=== PATIENT | male | born 1960 | race African-American/Black ===

== ENCOUNTER 2021-10-14 12:30 | Inpatient (IN) | payer OTHER ==
[2021-10-14] MEDS ORDERED: ONDANSETRON *ODT* 4 MG TABLET SL PRN (13:38)
[2021-10-14] MEDS ORDERED: MAG HYDROX/AL HYDROX/SIMETH 30 ML UNIT-DOSE CUP PO PRN (13:38)
[2021-10-14] MEDS ORDERED: MENTHOL/PHENOL 1 EACH UD MM PRN (13:38)
[2021-10-14] MEDS ORDERED: MAGNESIUM HYDROX 2400MG/30ML ORAL SUSPENSION 30 ML CUP PO PRN (13:38)
[2021-10-14] MEDS ORDERED: BISMUTH SUBSALICYLATE 262 MG/15 ML BTL PO PRN (13:38)
[2021-10-14] MEDS ORDERED: chlordiazePOXIDE HCL 25 MG CAPSULE PO PRN (13:38)
[2021-10-14] MEDS ORDERED: MAGNESIUM CITRATE 300 ML BOTTLE PO PRN (13:38)
[2021-10-14] MEDS ORDERED: ACETAMINOPHEN 325 MG TABLET (FP) PO PRN ×2 (13:38)
[2021-10-14] MEDS ORDERED: METHOCARBAMOL 500 MG TABLET PO PRN (13:38)
[2021-10-14] MEDS ORDERED: NICOTINE 10 MG CARTRIDGE (INHALER) IH PRN (13:38)
[2021-10-14 14:19] VITALS: BMI 22.3
[2021-10-14 16:06] LABS: ALBUMIN 3.4 g/dl (3.4-5.0); CALCIUM 9.5 mg/dL (8.5-10.1)
[2021-10-14 16:07] LABS: BLOOD UREA NITROGEN 11.3 mg/dL (7-18)
[2021-10-14 16:10] LABS: CREATININE 1.2 mg/dL (0.55-1.3); HEMATOCRIT 47.7 % (35.4-49); HEMOGLOBIN 16.1 GM/dL (11.7-16.9); MCH 31.4 pg (25.7-33.7); MCHC 33.8 g/dl (32.0-35.9); MEAN CELL VOLUME 92.9 fl (80-96); MEAN PLT VOLUME 8.1 fl (7.5-11.1); PLATELET COUNT 269 10^3/uL (134-434); RBC 5.13 M/mm3 (4.00-5.60); RDW 15.7 % (11.9-15.9); WHITE BLOOD COUNT 8.1 K/mm3 (4.0-10.0)
[2021-10-14 16:12] LABS: BILIRUBIN,TOTAL 0.7 mg/dL (0.2-1)
[2021-10-14] MEDS ORDERED: MASKS NR ONE (18:17)
[2021-10-14] MEDS: chlordiazePOXIDE HCL 25 MG CAPSULE PO SCH ×2 (18:19→22:28)
[2021-10-14] MEDS: hydrOXYzine PAMOATE 25 MG CAPSULE (FP) PO SCH ×3 (18:20→22:26)
[2021-10-14] MEDS: IBUPROFEN 100 MG/5 ML UNIT DOSE CUPS PO PRN (22:24)
[2021-10-14] MEDS: MELATONIN 5 MG TABLETS PO SCH (22:26)
[2021-10-14] MEDS: THIAMINE HCL 100 MG TABLET (FP) PO SCH (22:26)
[2021-10-15] MEDS: hydrOXYzine PAMOATE 25 MG CAPSULE (FP) PO SCH ×5 (05:37→22:14)
[2021-10-15] MEDS: chlordiazePOXIDE HCL 25 MG CAPSULE PO SCH ×4 (05:38→23:14)
[2021-10-15] MEDS: PRENATAL VITAMINS W/ FOLIC ACID TABLET (FP) PO SCH (10:36)
[2021-10-15] MEDS: IBUPROFEN 400 MG TABLET (FP) PO PRN (18:25)
[2021-10-15] MEDS: THIAMINE HCL 100 MG TABLET (FP) PO SCH (22:14)
[2021-10-15] MEDS: QUEtiapine FUMARATE 50 MG TABLET PO SCH (22:14)
[2021-10-15] MEDS: DULoxetine HCL 20 MG CAPSULE.DR PO SCH (22:14)
[2021-10-15] MEDS: MELATONIN 5 MG TABLETS PO SCH (22:15)
[2021-10-16] MEDS: chlordiazePOXIDE HCL 25 MG CAPSULE PO SCH ×4 (07:01→22:38)
[2021-10-16] MEDS: hydrOXYzine PAMOATE 25 MG CAPSULE (FP) PO SCH ×5 (07:02→22:37)
[2021-10-16] MEDS: DULoxetine HCL 20 MG CAPSULE.DR PO SCH ×2 (10:43→22:37)
[2021-10-16] MEDS: PRENATAL VITAMINS W/ FOLIC ACID TABLET (FP) PO SCH (10:45)
[2021-10-16] MEDS: IBUPROFEN 100 MG/5 ML UNIT DOSE CUPS PO PRN (18:16)
[2021-10-16] MEDS: THIAMINE HCL 100 MG TABLET (FP) PO SCH (22:37)
[2021-10-16] MEDS: QUEtiapine FUMARATE 50 MG TABLET PO SCH (22:37)
[2021-10-16] MEDS: MELATONIN 5 MG TABLETS PO SCH (22:37)
[2021-10-17] MEDS ORDERED: chlordiazePOXIDE HCL 10 MG CAPSULE PO PRN
[2021-10-17] MEDS: chlordiazePOXIDE HCL 10 MG CAPSULE PO SCH ×4 (05:38→22:42)
[2021-10-17] MEDS: hydrOXYzine PAMOATE 25 MG CAPSULE (FP) PO SCH ×5 (05:39→22:07)
[2021-10-17] MEDS: PRENATAL VITAMINS W/ FOLIC ACID TABLET (FP) PO SCH (10:20)
[2021-10-17] MEDS: DULoxetine HCL 20 MG CAPSULE.DR PO SCH ×2 (15:13→22:06)
[2021-10-17] MEDS: THIAMINE HCL 100 MG TABLET (FP) PO SCH (22:07)
[2021-10-17] MEDS: QUEtiapine FUMARATE 50 MG TABLET PO SCH (22:07)
[2021-10-17] MEDS: MELATONIN 5 MG TABLETS PO SCH (22:07)
[2021-10-17] MEDS: IBUPROFEN 100 MG/5 ML UNIT DOSE CUPS PO PRN (22:07)
[2021-10-18] MEDS: hydrOXYzine PAMOATE 25 MG CAPSULE (FP) PO SCH ×5 (06:17→22:35)
[2021-10-18] MEDS: chlordiazePOXIDE HCL 10 MG CAPSULE PO SCH ×2 (06:18→18:08)
[2021-10-18] MEDS: DULoxetine HCL 20 MG CAPSULE.DR PO SCH ×2 (10:28→22:35)
[2021-10-18] MEDS: PRENATAL VITAMINS W/ FOLIC ACID TABLET (FP) PO SCH (10:28)
[2021-10-18] MEDS: MELATONIN 5 MG TABLETS PO SCH (22:36)
[2021-10-18] MEDS: THIAMINE HCL 100 MG TABLET (FP) PO SCH (22:36)
[2021-10-18] MEDS: QUEtiapine FUMARATE 50 MG TABLET PO SCH (22:37)
[2021-10-18] MEDS: IBUPROFEN 400 MG TABLET (FP) PO PRN (22:38)
[2021-10-19] MEDS ORDERED: chlordiazePOXIDE HCL 10 MG CAPSULE PO ONE (05:00)
[2021-10-19] MEDS: hydrOXYzine PAMOATE 25 MG CAPSULE (FP) PO SCH (05:57)
[2021-10-19 09:25] VITALS: BP 144/81; PULSE 64; TEMP 96.2
== END 2021-10-19 09:47 | disposition home or self-care (01) | DRG 774 ==
LOC: YASAS 12:30 → Y3N 14:31
PROVIDERS: ADMIT Allergy & Immunology; ATTEND Allergy & Immunology
PROC: HZ2ZZZZ Detoxification Services for Substance Abuse Treatment (ICD-10-PCS; principal; 2021-10-14)
DX: F10.230 Alcohol dependence with withdrawal, uncomplicated (principal); F14.10 Cocaine abuse, uncomplicated; F17.210 Nicotine dependence, cigarettes, uncomplicated; F32.A Depression, unspecified; F19.24 Other psychoactive substance dependence with psychoactive substance-induced mood disorder; F41.9 Anxiety disorder, unspecified; Z56.0 Unemployment, unspecified
CPT/HCPCS: 36415; 80053; 82947; 85027; 86780; C9803; U0003; U0005

== ENCOUNTER 2022-12-15 13:00 | Inpatient (IN) | payer OTHER ==
[2022-12-15 14:08] VITALS: BMI 22.4
[2022-12-15] MEDS ORDERED: LOPERAMIDE HCL 2 MG CAPSULE PO PRN (16:14)
[2022-12-15] MEDS ORDERED: ACETAMINOPHEN 325 MG TABLET (FP) PO PRN (16:14)
[2022-12-15] MEDS ORDERED: POLYETHYLENE GLYCOL (HEALTHYLAX) 3350 17 GM PACKET PO PRN (16:14)
[2022-12-15] MEDS ORDERED: DICYCLOMINE HCL 10 MG CAPSULE PO PRN (16:14)
[2022-12-15] MEDS ORDERED: IBUPROFEN 600 MG TABLET (FP) PO PRN (16:14)
[2022-12-15] MEDS ORDERED: IBUPROFEN 400 MG TABLET (FP) PO PRN (16:14)
[2022-12-15] MEDS ORDERED: MAG HYDROX/AL HYDROX/SIMETH 30 ML UNIT-DOSE CUP PO PRN (16:14)
[2022-12-15] MEDS ORDERED: NICOTINE 10 MG CARTRIDGE (INHALER) IH PRN (16:14)
[2022-12-15] MEDS ORDERED: BENZOCAINE/MENTHOL (CHLORASEPTIC ) LOZENGE MM PRN (16:14)
[2022-12-15] MEDS ORDERED: BISMUTH SUBSALICYLATE 524 MG/30 ML PO PRN (16:14)
[2022-12-15] MEDS ORDERED: diazePAM 5 MG TABLET PO PRN (16:14)
[2022-12-15] MEDS ORDERED: ONDANSETRON *ODT* 4 MG TABLET SL PRN (16:14)
[2022-12-15] MEDS ORDERED: NALOXONE HCL (KLOXXADO) 8 MG SPRAY NS PRN (16:14)
[2022-12-15] MEDS ORDERED: MAGNESIUM HYDROX 2400MG/30ML ORAL SUSPENSION 30 ML CUP PO PRN (16:14)
[2022-12-15] MEDS: PRENATAL VITAMINS W/ FOLIC ACID TABLET (FP) PO SCH (19:29)
[2022-12-15] MEDS: diazePAM 5 MG TABLET PO SCH ×2 (19:30→23:39)
[2022-12-15] MEDS: MELATONIN 5 MG TABLETS PO SCH (22:02)
[2022-12-15] MEDS: THIAMINE HCL 100 MG TABLET (FP) PO SCH (22:02)
[2022-12-15] MEDS: ACETAMINOPHEN 325 MG TABLET (FP) PO PRN (22:03)
[2022-12-15] MEDS: METHOCARBAMOL 500 MG TABLET PO PRN (22:05)
[2022-12-16] MEDS: diazePAM 5 MG TABLET PO SCH ×4 (05:57→23:41)
[2022-12-16] MEDS: METHOCARBAMOL 500 MG TABLET PO PRN ×2 (10:41→22:30)
[2022-12-16] MEDS: PRENATAL VITAMINS W/ FOLIC ACID TABLET (FP) PO SCH (10:41)
[2022-12-16] MEDS: hydrOXYzine PAMOATE 25 MG CAPSULE (FP) PO PRN (10:41)
[2022-12-16 10:47] LABS: HEMOGLOBIN 13.4 GM/dL (11.7-16.9); MCHC 33.4 g/dl (32.0-35.9); MEAN CELL VOLUME 95.7 fl (80-96); PLATELET COUNT 247 10^3/uL (134-434); RBC 4.18 M/mm3 (4.00-5.60); RDW 14.9 % (11.9-15.9); WHITE BLOOD COUNT 8.5 K/mm3 (4.0-10.0)
[2022-12-16 11:12] LABS: CALCIUM 8.8 mg/dL (8.5-10.1)
[2022-12-16 11:13] LABS: ALBUMIN 3.1 g/dl (3.4-5.0); BLOOD UREA NITROGEN 15.4 mg/dL (7-18)
[2022-12-16 11:17] LABS: BILIRUBIN,TOTAL 0.4 mg/dL (0.2-1); TOT PROT 5.7 g/dl (6.4-8.2)
[2022-12-16] MEDS: LACTULOSE 20 GM/30 ML UDC (FOR ORAL USE ONLY) PO SCH ×2 (14:02→22:27)
[2022-12-16] MEDS: MELATONIN 5 MG TABLETS PO SCH (22:28)
[2022-12-16] MEDS: QUEtiapine FUMARATE 50 MG TABLET PO SCH (22:28)
[2022-12-16] MEDS: THIAMINE HCL 100 MG TABLET (FP) PO SCH (22:28)
[2022-12-16] MEDS: ACETAMINOPHEN 325 MG TABLET (FP) PO PRN (22:30)
[2022-12-17] MEDS: LACTULOSE 20 GM/30 ML UDC (FOR ORAL USE ONLY) PO SCH ×3 (05:41→22:43)
[2022-12-17] MEDS: diazePAM 5 MG TABLET PO SCH ×3 (05:42→22:23)
[2022-12-17] MEDS: PRENATAL VITAMINS W/ FOLIC ACID TABLET (FP) PO SCH (10:27)
[2022-12-17] MEDS: DULoxetine HCL 20 MG CAPSULE.DR PO SCH (10:27)
[2022-12-17] MEDS ORDERED: cloNIDine HCL 0.1 MG TABLET PO ONE (17:23)
[2022-12-17] MEDS: THIAMINE HCL 100 MG TABLET (FP) PO SCH (22:23)
[2022-12-17] MEDS: QUEtiapine FUMARATE 50 MG TABLET PO SCH (22:23)
[2022-12-17] MEDS: MELATONIN 5 MG TABLETS PO SCH (22:23)
[2022-12-18] MEDS: diazePAM 5 MG TABLET PO SCH ×2 (05:24→17:28)
[2022-12-18] MEDS: LACTULOSE 20 GM/30 ML UDC (FOR ORAL USE ONLY) PO SCH ×3 (05:34→22:17)
[2022-12-18] MEDS: DULoxetine HCL 20 MG CAPSULE.DR PO SCH (10:58)
[2022-12-18] MEDS: PRENATAL VITAMINS W/ FOLIC ACID TABLET (FP) PO SCH (10:58)
[2022-12-18] MEDS ORDERED: cloNIDine HCL 0.1 MG TABLET PO ONE (21:20)
[2022-12-18] MEDS: QUEtiapine FUMARATE 50 MG TABLET PO SCH (22:16)
[2022-12-18] MEDS: MELATONIN 5 MG TABLETS PO SCH (22:16)
[2022-12-18] MEDS: hydrOXYzine PAMOATE 25 MG CAPSULE (FP) PO PRN (22:16)
[2022-12-18] MEDS: THIAMINE HCL 100 MG TABLET (FP) PO SCH (22:16)
[2022-12-19] MEDS ORDERED: diazePAM 5 MG TABLET PO ONE (06:00)
[2022-12-19] MEDS: LACTULOSE 20 GM/30 ML UDC (FOR ORAL USE ONLY) PO SCH ×2 (06:01→14:25)
[2022-12-19] MEDS: PRENATAL VITAMINS W/ FOLIC ACID TABLET (FP) PO SCH (10:23)
[2022-12-19] MEDS: DULoxetine HCL 20 MG CAPSULE.DR PO SCH (10:23)
[2022-12-19 16:48] VITALS: BP 151/90; PULSE 71; RESP 16; TEMP 98.6
[2022-12-20] MEDS ORDERED: diazePAM 5 MG TABLET PO ONE (06:00)
== END 2022-12-19 18:35 | disposition home or self-care (01) | DRG 774 ==
LOC: YASAS 13:00 → Y3N 18:56
PROVIDERS: ADMIT Allergy & Immunology; ATTEND Surgery
PROC: HZ2ZZZZ Detoxification Services for Substance Abuse Treatment (ICD-10-PCS; principal; 2022-12-15)
DX: F10.230 Alcohol dependence with withdrawal, uncomplicated (principal); F14.20 Cocaine dependence, uncomplicated; F12.20 Cannabis dependence, uncomplicated; F17.210 Nicotine dependence, cigarettes, uncomplicated; F41.9 Anxiety disorder, unspecified; F32.A Depression, unspecified; E72.20 Disorder of urea cycle metabolism, unspecified; R03.0 Elevated blood-pressure reading, without diagnosis of hypertension
CPT/HCPCS: 36415; 80053; 82140; 83036; 85027; 86780; C9803-CS; U0003; U0005

== ENCOUNTER 2023-06-10 14:07 | Inpatient (IN) | payer OTHER ==
[2023-06-10 14:36] VITALS: BMI 22.1
[2023-06-10] MEDS ORDERED: POLYETHYLENE GLYCOL (HEALTHYLAX) 3350 17 GM PACKET PO PRN (18:39)
[2023-06-10] MEDS ORDERED: diazePAM 5 MG TABLET PO PRN (18:39)
[2023-06-10] MEDS ORDERED: IBUPROFEN 400 MG TABLET (FP) PO PRN (18:39)
[2023-06-10] MEDS ORDERED: NALOXONE HCL 0.4 MG/ML VIAL IM PRN (18:39)
[2023-06-10] MEDS ORDERED: IBUPROFEN 600 MG TABLET (FP) PO PRN (18:39)
[2023-06-10] MEDS ORDERED: guaiFENesin 600 MG TABLET.ER (FP) PO PRN (18:39)
[2023-06-10] MEDS ORDERED: NALOXONE HCL (KLOXXADO) 8 MG SPRAY NS PRN (18:39)
[2023-06-10] MEDS ORDERED: ACETAMINOPHEN 325 MG TABLET (FP) PO PRN (18:39)
[2023-06-10] MEDS ORDERED: MAGNESIUM HYDROX 2400MG/30ML ORAL SUSPENSION 30 ML CUP PO PRN (18:39)
[2023-06-10] MEDS ORDERED: DICYCLOMINE HCL 10 MG CAPSULE PO PRN (18:39)
[2023-06-10] MEDS ORDERED: BISMUTH SUBSALICYLATE 524 MG/30 ML PO PRN (18:39)
[2023-06-10] MEDS ORDERED: BENZONATATE 200 MG CAPSULE PO PRN (18:39)
[2023-06-10] MEDS ORDERED: BENZOCAINE/MENTHOL (CHLORASEPTIC ) LOZENGE MM PRN (18:39)
[2023-06-10] MEDS ORDERED: MAG HYDROX/AL HYDROX/SIMETH 30 ML UNIT-DOSE CUP PO PRN (18:39)
[2023-06-10] MEDS ORDERED: LOPERAMIDE HCL 2 MG CAPSULE PO PRN (18:39)
[2023-06-10] MEDS ORDERED: ONDANSETRON *ODT* 4 MG TABLET SL PRN (18:39)
[2023-06-10] MEDS: METHOCARBAMOL 500 MG TABLET PO PRN (22:17)
[2023-06-10] MEDS: hydrOXYzine PAMOATE 25 MG CAPSULE (FP) PO PRN (22:17)
[2023-06-10] MEDS: MELATONIN 5 MG TABLETS PO SCH (22:17)
[2023-06-10] MEDS: diazePAM 5 MG TABLET PO SCH (22:17)
[2023-06-10] MEDS: THIAMINE HCL 100 MG TABLET (FP) PO SCH (22:17)
[2023-06-11] MEDS: diazePAM 5 MG TABLET PO SCH ×4 (05:20→22:37)
[2023-06-11] MEDS: PRENATAL VITAMINS W/ FOLIC ACID TABLET (FP) PO SCH (10:15)
[2023-06-11] MEDS: DULoxetine HCL 20 MG CAPSULE.DR PO SCH (12:43)
[2023-06-11] MEDS ORDERED: cloNIDine HCL 0.1 MG TABLET PO ONE (22:17)
[2023-06-11] MEDS: MELATONIN 5 MG TABLETS PO SCH (22:36)
[2023-06-11] MEDS: THIAMINE HCL 100 MG TABLET (FP) PO SCH (22:36)
[2023-06-11] MEDS: METHOCARBAMOL 500 MG TABLET PO PRN (22:36)
[2023-06-11] MEDS: QUEtiapine FUMARATE 50 MG TABLET PO SCH (22:36)
[2023-06-12] MEDS: diazePAM 5 MG TABLET PO SCH ×3 (05:57→22:29)
[2023-06-12] MEDS: METHOCARBAMOL 500 MG TABLET PO PRN ×2 (05:59→22:29)
[2023-06-12] MEDS: DULoxetine HCL 20 MG CAPSULE.DR PO SCH (09:41)
[2023-06-12] MEDS: PRENATAL VITAMINS W/ FOLIC ACID TABLET (FP) PO SCH (09:41)
[2023-06-12 11:41] LABS: HEMATOCRIT 46.7 % (35.4-49); HEMOGLOBIN 14.9 GM/dL (11.7-16.9); MCH 30.4 pg (25.7-33.7); MEAN PLT VOLUME 8.8 fl (7.5-11.1); PLATELET COUNT 277 10^3/uL (134-434); RBC 4.91 M/mm3 (4.00-5.60); RDW 15.1 % (11.9-15.9); WHITE BLOOD COUNT 9.7 K/mm3 (4.0-10.0)
[2023-06-12 11:52] LABS: POTASSIUM 4.1 mmol/L (3.5-5.1)
[2023-06-12 12:01] LABS: CALCIUM 9.2 mg/dL (8.5-10.1)
[2023-06-12 12:02] LABS: ALBUMIN 3.1 g/dl (3.4-5.0); BLOOD UREA NITROGEN 15.1 mg/dL (7-18)
[2023-06-12 12:06] LABS: BILIRUBIN,TOTAL 0.3 mg/dL (0.2-1); TOT PROT 5.7 g/dl (6.4-8.2)
[2023-06-12] MEDS ORDERED: LISINOPRIL 5 MG TABLET PO ONE ×2 (19:42→21:30)
[2023-06-12] MEDS: hydrOXYzine PAMOATE 25 MG CAPSULE (FP) PO PRN (22:29)
[2023-06-12] MEDS: MELATONIN 5 MG TABLETS PO SCH (22:29)
[2023-06-12] MEDS: QUEtiapine FUMARATE 50 MG TABLET PO SCH (22:29)
[2023-06-12] MEDS: THIAMINE HCL 100 MG TABLET (FP) PO SCH (22:29)
[2023-06-13] MEDS: diazePAM 5 MG TABLET PO SCH ×2 (05:45→18:34)
[2023-06-13] MEDS: DULoxetine HCL 20 MG CAPSULE.DR PO SCH (10:11)
[2023-06-13] MEDS: PRENATAL VITAMINS W/ FOLIC ACID TABLET (FP) PO SCH (10:11)
[2023-06-13] MEDS ORDERED: cloNIDine HCL 0.1 MG TABLET PO ONE (22:44)
[2023-06-13] MEDS: MELATONIN 5 MG TABLETS PO SCH (22:56)
[2023-06-13] MEDS: QUEtiapine FUMARATE 50 MG TABLET PO SCH (22:57)
[2023-06-13] MEDS: THIAMINE HCL 100 MG TABLET (FP) PO SCH (22:57)
[2023-06-14] MEDS ORDERED: diazePAM 5 MG TABLET PO ONE (06:00)
[2023-06-14 10:21] VITALS: BP 127/68; PULSE 62; RESP 16; TEMP 98
[2023-06-14] MEDS: PRENATAL VITAMINS W/ FOLIC ACID TABLET (FP) PO SCH (10:26)
[2023-06-14] MEDS: DULoxetine HCL 20 MG CAPSULE.DR PO SCH (10:26)
== END 2023-06-14 13:46 | disposition other institution (70) | DRG 774 ==
LOC: YASAS 14:07 → Y3N 19:04
PROVIDERS: ADMIT Allergy & Immunology; ATTEND Allergy & Immunology
PROC: HZ2ZZZZ Detoxification Services for Substance Abuse Treatment (ICD-10-PCS; principal; 2023-06-10)
DX: F10.230 Alcohol dependence with withdrawal, uncomplicated (principal); F14.20 Cocaine dependence, uncomplicated; F17.210 Nicotine dependence, cigarettes, uncomplicated; F41.9 Anxiety disorder, unspecified; F32.A Depression, unspecified; F43.10 Post-traumatic stress disorder, unspecified; G47.00 Insomnia, unspecified
CPT/HCPCS: 36415; 80053; 85027; 86780; 87635

== ENCOUNTER 2024-05-14 13:37 | Inpatient (IN) | payer OTHER ==
[2024-05-14 15:54] VITALS: BMI 27.6
[2024-05-14] MEDS ORDERED: POLYETHYLENE GLYCOL (HEALTHYLAX) 3350 17 GM PACKET PO PRN (16:31)
[2024-05-14] MEDS ORDERED: MAGNESIUM HYDROX 2400MG/30ML ORAL SUSPENSION 30 ML CUP PO PRN (16:31)
[2024-05-14] MEDS ORDERED: LOPERAMIDE HCL 2 MG CAPSULE PO PRN (16:31)
[2024-05-14] MEDS ORDERED: guaiFENesin 600 MG TABLET.ER (FP) PO PRN (16:31)
[2024-05-14] MEDS ORDERED: MAG HYDROX/AL HYDROX/SIMETH 30 ML UNIT-DOSE CUP PO PRN (16:31)
[2024-05-14] MEDS ORDERED: IBUPROFEN 400 MG TABLET (FP) PO PRN (16:31)
[2024-05-14] MEDS ORDERED: NALOXONE HCL 0.4 MG/ML VIAL IM PRN (16:31)
[2024-05-14] MEDS ORDERED: BENZONATATE 200 MG CAPSULE PO PRN (16:31)
[2024-05-14] MEDS ORDERED: NICOTINE POLACRILEX 2 MG GUM BUC PRN (16:31)
[2024-05-14] MEDS ORDERED: NALOXONE (NARCAN) HCL 4 MG/0.1 ML SPRAY NS PRN (16:31)
[2024-05-14] MEDS ORDERED: BISMUTH SUBSALICYLATE 524 MG/30 ML PO PRN (16:31)
[2024-05-14] MEDS ORDERED: NICOTINE POLACRILEX 2 MG LOZENGE BC PRN (16:31)
[2024-05-14] MEDS ORDERED: DICYCLOMINE HCL 10 MG CAPSULE PO PRN (16:31)
[2024-05-14] MEDS ORDERED: BENZOCAINE/MENTHOL (CHLORASEPTIC ) LOZENGE MM PRN (16:31)
[2024-05-14] MEDS ORDERED: ONDANSETRON *ODT* 4 MG TABLET SL PRN (16:31)
[2024-05-14] MEDS ORDERED: chlordiazePOXIDE HCL 25 MG CAPSULE PO PRN (16:32)
[2024-05-14] MEDS ORDERED: chlordiazePOXIDE HCL 25 MG CAPSULE ONE (17:21)
[2024-05-14] MEDS ORDERED: IBUPROFEN 600 MG TABLET (FP) PO ONE (17:24)
[2024-05-14] MEDS: chlordiazePOXIDE HCL 25 MG CAPSULE PO SCH (17:26)
[2024-05-14] MEDS: IBUPROFEN 600 MG TABLET (FP) PO PRN (17:27)
[2024-05-14] MEDS: MELATONIN 5 MG TABLETS PO SCH (22:17)
[2024-05-14] MEDS: THIAMINE 100 MG TABLET PO SCH (22:17)
[2024-05-15] MEDS: PRENATAL VITAMINS W/ FOLIC ACID TABLET (FP) PO SCH (10:29)
[2024-05-15 11:56] LABS: HEMATOCRIT 42.6 % (35.4-49); HEMOGLOBIN 14.1 GM/dL (11.7-16.9); MCH 31.1 pg (25.7-33.7); MEAN CELL VOLUME 94.2 fl (80-96); MEAN PLT VOLUME 8.4 fl (7.5-11.1); PLATELET COUNT 282 10^3/uL (134-434); RBC 4.52 M/mm3 (4.00-5.60); RDW 15.2 % (11.9-15.9); WHITE BLOOD COUNT 7.4 K/mm3 (4.0-10.0)
[2024-05-15 12:11] LABS: POTASSIUM 4.3 mmol/L (3.5-5.1)
[2024-05-15 12:37] LABS: CALCIUM 9.5 mg/dL (8.5-10.1)
[2024-05-15 12:38] LABS: BLOOD UREA NITROGEN 18.4 mg/dL (7-18)
[2024-05-15 12:39] LABS: CREATININE 0.9 mg/dL (0.55-1.3)
[2024-05-15 12:42] LABS: BILIRUBIN,TOTAL 0.2 mg/dL (0.2-1); TOT PROT 5.7 g/dl (6.4-8.2)
[2024-05-15] MEDS: ACETAMINOPHEN 325 MG TABLET (FP) PO PRN (22:31)
[2024-05-15] MEDS: cloNIDine HCL 0.1 MG TABLET PO PRN (22:31)
[2024-05-15] MEDS: QUEtiapine FUMARATE 50 MG TABLET PO PRN (22:32)
[2024-05-16] MEDS: chlordiazePOXIDE HCL 25 MG CAPSULE PO SCH (05:55)
[2024-05-17] MEDS ORDERED: chlordiazePOXIDE HCL 10 MG CAPSULE PO PRN
[2024-05-17] MEDS: chlordiazePOXIDE HCL 10 MG CAPSULE PO SCH (05:26)
[2024-05-17] MEDS: amLODIPine BESYLATE 10 MG TABLET (FP) PO SCH (10:45)
[2024-05-18] MEDS: chlordiazePOXIDE HCL 10 MG CAPSULE PO SCH (06:40)
[2024-05-19] MEDS: chlordiazePOXIDE HCL 10 MG CAPSULE PO ONE (06:04)
[2024-05-19] MEDS: cloNIDine HCL 0.1 MG TABLET PO ONE (11:36)
[2024-05-19 20:44] VITALS: RESP 18
[2024-05-20 09:49] VITALS: BP 156/82; PULSE 70; TEMP 97.9
== END 2024-05-20 11:49 | disposition home or self-care (01) | DRG 774 ==
LOC: YASAS 13:37 → Y3N 17:20
PROVIDERS: ADMIT Allergy & Immunology; ATTEND Surgery
PROC: HZ2ZZZZ Detoxification Services for Substance Abuse Treatment (ICD-10-PCS; principal; 2024-05-14)
DX: F10.230 Alcohol dependence with withdrawal, uncomplicated (principal); F14.20 Cocaine dependence, uncomplicated; F12.10 Cannabis abuse, uncomplicated; F17.210 Nicotine dependence, cigarettes, uncomplicated; F19.282 Other psychoactive substance dependence with psychoactive substance-induced sleep disorder; F19.24 Other psychoactive substance dependence with psychoactive substance-induced mood disorder; F41.9 Anxiety disorder, unspecified; F32.A Depression, unspecified; F43.10 Post-traumatic stress disorder, unspecified; G47.00 Insomnia, unspecified; Z91.85 Personal history of military service
CPT/HCPCS: 36415; 80053; 80305; 85027; 86780; 93005; 93010